=== PATIENT | female | born 1995 | race Caucasian/White ===

== ENCOUNTER 2022-10-09 07:10 | Day surgery (SDC) | payer OTHER ==
[2022-10-09] VITALS (233 sets, daily range): BP systolic 85–155; BP diastolic 49–104
[~2022-10-09] VITALS: Ht 162.6 cm; Wt 85.0 kg
[2022-10-09 09:01] LABS: ALBUMIN 3.9 g/dL (3.2-5.0); ALKALINE PHOSPHATASE 65 u/l (38-126); ANION GAP 9 (6-22 (CALC)); BILIRUBIN, TOTAL 0.5 mg/dL (0.02-1.3); BUN 12 mg/dL (7-17); BUN/CREATININE RATIO 16 (12-20 (CALC)); CARBON DIOXIDE 30 mmol/l (22-30); CHLORIDE 105 mmol/l (95-108); CREATININE 0.8 mg/dL (0.5-1.0); GFR FOR AFR.AMER. > 60 ML/MIN (>=60 (CALC)); GFR OTHER RACES > 60 ML/MIN (>=60 (CALC)); SGOT/AST 22 u/l (14-36); SODIUM 140 mmol/l (137-146); TOTAL PROTEIN 6.8 g/dL (6.3-8.2)
[2022-10-09 09:03] LABS: BASO% 0.2 % (0-3); EOS% 6.2 % (0-8); HEMATOCRIT 40.1 % (37.0-47.0); HEMOGLOBIN 13.2 g/dl (12.0-16.0); LYMPH% 39.2 % (15-41); MEAN CELL VOLUME 87.9 fL CALC (80.0-100.0); MEAN CORPUSCULAR HGB 28.9 pG CALC (26.0-32.0); MEAN CORPUSCULAR HGB CONC 32.9 g/dL CAL (32.0-36.0); MONO% 9.1 % (2-13); NEUT# 2.35 thou/uL (2.00-7.15); NEUT% 45.3 % (42-76); RED BLOOD COUNT 4.56 mill/uL (4.20-5.60); RED CELL DISTRI WIDTH 11.5 % (11.5-15.5)
[2022-10-09] MEDS ORDERED: NALTREXONE50 MG PO (16:56)
[2022-10-09] MEDS ORDERED: KLONOPIN2 MG PO (16:57)
[2022-10-09] MEDS ORDERED: CLONIDINE0.1 MG PO (16:57)
[2022-10-10 03:56] VITALS: BP 114/49
[2022-10-10 04:00] LABS: HEMATOCRIT 39.7 % (37.0-47.0); HEMOGLOBIN 13.7 g/dl (12.0-16.0); LYMPH% 7.5 % (15-41); MEAN CELL VOLUME 85.2 fL CALC (80.0-100.0); MEAN CORPUSCULAR HGB 29.4 pG CALC (26.0-32.0); MEAN CORPUSCULAR HGB CONC 34.5 g/dL CAL (32.0-36.0); MONO% 0.8 % (2-13); NEUT# 5.98 thou/uL (2.00-7.15); NEUT% 91.7 % (42-76); RED BLOOD COUNT 4.66 mill/uL (4.20-5.60); RED CELL DISTRI WIDTH 11.3 % (11.5-15.5)
[2022-10-10 04:13] LABS: ALBUMIN 3.8 g/dL (3.2-5.0); ALKALINE PHOSPHATASE 57 u/l (38-126); ANION GAP 10 (6-22 (CALC)); BUN 9 mg/dL (7-17); BUN/CREATININE RATIO 12 (12-20 (CALC)); CARBON DIOXIDE 26 mmol/l (22-30); CHLORIDE 111 mmol/l (95-108); CREATININE 0.8 mg/dL (0.5-1.0); GFR FOR AFR.AMER. > 60 ML/MIN (>=60 (CALC)); GFR OTHER RACES > 60 ML/MIN (>=60 (CALC)); MAGNESIUM 2.2 mg/dL (1.6-2.3); POTASSIUM 3.7 mmol/l (3.5-5.1); SGOT/AST 26 u/l (14-36); SODIUM 144 mmol/l (137-146); TOTAL PROTEIN 6.8 g/dL (6.3-8.2)
[2022-10-10 04:14] LABS: BILIRUBIN, TOTAL 0.9 mg/dL (0.02-1.3)
[2022-10-10 04:21] VITALS: BP 114/49
[2022-10-10 07:40] VITALS: BP 114/49
== END 2022-10-10 17:19 | disposition home or self-care (01) | DRG 897 ==
LOC: ANR 07:10 → MS2 07:10 → ANR 10-10 17:19
PROVIDERS: ATTEND Anesthesiology
DX: F11.20 Opioid dependence, uncomplicated (principal)
CPT/HCPCS: J2060; J2354; J3475